=== PATIENT | male | born 2000 | race Caucasian/White ===

== ENCOUNTER 2022-09-18 22:13 | Inpatient (IN) | payer OTHER ==
[~2022-09-18] VITALS: Ht 177.8 cm; Wt 81.8 kg
[2022-09-19 00:28] LABS: HEMATOCRIT 44.5 % (42.0-52.0); HEMOGLOBIN 15.1 g/dl (13.5-17.5); MEAN CORPUSCULAR HEMOGLOBIN 30.6 pg (27.0-33.0); MEAN CORPUSCULAR HGB CONC 33.9 g/dl (32.0-36.5); MEAN CORPUSCULAR VOLUME 90.3 fl (80.0-96.0); PLATELET COUNT, AUTOMATED 279 10^3/uL (150-450); RED BLOOD COUNT 4.93 10^6/uL (4.30-6.10); WHITE BLOOD COUNT 13.3 10^3/uL (4.0-10.0)
[2022-09-19 00:53] LABS: ACETAMINOPHEN LEVEL < 2.0 UG/ML (10.0-20.0); ALBUMIN 4.5 G/DL (3.2-5.2); ALT/SGPT 27 U/L (7.0-40); BILIRUBIN,DIRECT < 0.1 MG/DL (<0.4); BILIRUBIN,TOTAL 0.2 MG/DL (0.3-1.2); BLOOD UREA NITROGEN 13 MG/DL (9-23); CALCIUM LEVEL 9.6 MG/DL (8.5-10.1); CARBON DIOXIDE LEVEL 24 MMOL/L (20-31); CHLORIDE LEVEL 108 MMOL/L (98-107); CREATININE FOR GFR 0.65 MG/DL (0.70-1.30); ETHYL ALCOHOL (ETHANOL) 0.073 % (0.000-0.010); GLOMERULAR FILTRATION RATE > 60.0 (>60); GLUCOSE, FASTING 90 MG/DL (60-100); POTASSIUM SERUM 4.1 MMOL/L (3.5-5.1); SODIUM LEVEL 144 MMOL/L (136-145); THYROID STIMULATING HORMONE 1.192 uIU/ML (0.55-4.78); TOTAL PROTEIN 7.6 G/DL (5.7-8.2)
[2022-09-19 00:54] LABS: SALICYLATE LEVEL < 3.0 MG/DL (<30)
[2022-09-19 00:56] LABS: RSV AMPLIFICATION NEGATIVE (NEGATIVE)
[2022-09-19] MEDS ORDERED: ACETAMINOPHEN TAB 650MG DOSE (2X325MG) PO PRN (03:10)
[2022-09-19 03:50] LABS: AMPHETAMINES LEVEL URINE NEGATIVE (NEGATIVE); BARBITURATES URINE NEGATIVE (NEGATIVE); BENZODIAZEPINES URINE NEGATIVE (NEGATIVE); CANNABINOIDS URINE POSITIVE (NEGATIVE); COCAINE METABOLITE URINE NEGATIVE (NEGATIVE); METHADONE URINE NEGATIVE (NEGATIVE); OPIATES URINE NEGATIVE (NEGATIVE); PHENCYCLIDINE URINE NEGATIVE (NEGATIVE)
[2022-09-19] MEDS ORDERED: NICOTINE 21MG/24HR 1 EA TRANSDERMAL TD ONE (17:00)
[2022-09-20] MEDS ORDERED: HOME MED LIST COMPLETE! XX SCH (15:10)
[2022-09-20] MEDS ORDERED: NICOTINE 14 MG/24 HR TRANSDERMAL TD ONE (22:05)
[2022-09-20] MEDS ORDERED: NICOTINE 21MG/24HR 1 EA TRANSDERMAL TD ONE (22:15)
[2022-09-21] MEDS ORDERED: MAALOX 30 ML SUSP *UDC PO PRN (12:55)
[2022-09-21] MEDS ORDERED: MOM 30ML SUSPENSION UDC PO PRN (12:55)
[2022-09-21] MEDS ORDERED: IBUPROFEN 400MG TAB PO PRN (12:55)
[2022-09-21] MEDS: NICOTINE 21MG/24HR 1 EA TRANSDERMAL TD SCH (13:17)
[2022-09-21 14:58] VITALS: BP 147/90
[2022-09-21] MEDS: traZODone 50 MG TAB PO PRN (21:38)
[2022-09-21] MEDS: LORazepam 1 MG TAB PO PRN (21:39)
[2022-09-22 06:13] VITALS: BP 156/66
[2022-09-22] MEDS: NICOTINE 21MG/24HR 1 EA TRANSDERMAL TD SCH (08:12)
[2022-09-22] MEDS: LORazepam 1 MG TAB PO PRN ×2 (12:45→20:24)
[2022-09-22 18:12] VITALS: BP 132/63
[2022-09-22] MEDS: traZODone 50 MG TAB PO PRN (20:22)
[2022-09-23 06:28] VITALS: BP 134/70
[2022-09-23] MEDS: NICOTINE 21MG/24HR 1 EA TRANSDERMAL TD SCH (08:37)
[2022-09-23] MEDS: LORazepam 1 MG TAB PO PRN ×2 (08:38→20:22)
[2022-09-23 18:00] VITALS: BP 128/75
[2022-09-23] MEDS: traZODone 50 MG TAB PO PRN (20:22)
[2022-09-24 06:54] VITALS: BP 119/63
[2022-09-24] MEDS: NICOTINE 21MG/24HR 1 EA TRANSDERMAL TD SCH (08:11)
[2022-09-24] MEDS ORDERED: TRAZ-252 PO (08:52)
== END 2022-09-24 10:41 | disposition home or self-care (01) | DRG 756 ==
LOC: M ED 22:13 → M ED INP 09-21 12:53 → M PSY 09-21 15:02
PROVIDERS: ADMIT Student in an Organized Health Care Education/Training Program; ATTEND Psychiatry & Neurology Psychiatry
DX: F43.0 Acute stress reaction (principal); R45.851 Suicidal ideations; F10.220 Alcohol dependence with intoxication, uncomplicated; F17.210 Nicotine dependence, cigarettes, uncomplicated; Z20.822 Contact with and (suspected) exposure to COVID-19; Z63.0 Problems in relationship with spouse or partner; Z79.899 Other long term (current) drug therapy; S31.119A Laceration without foreign body of abdominal wall, unspecified quadrant without penetration into peritoneal cavity, initial encounter; S41.111A Laceration without foreign body of right upper arm, initial encounter; S41.112A Laceration without foreign body of left upper arm, initial encounter; X78.1XXA Intentional self-harm by knife, initial encounter; Y92.009 Unspecified place in unspecified non-institutional (private) residence as the place of occurrence of the external cause

== ENCOUNTER 2023-03-29 14:38 | Emergency (ER) | payer OTHER ==
[~2023-03-29] VITALS: Ht 177.8 cm; Wt 72.7 kg
[~2023-03-29 14:38] MED LIST: TRAZ-252 PO
[2023-03-29 15:25] LABS: HEMATOCRIT 45.9 % (42.0-52.0); HEMOGLOBIN 15.8 g/dl (13.5-17.5); MEAN CORPUSCULAR HGB CONC 34.4 g/dl (32.0-36.5); MEAN CORPUSCULAR VOLUME 87.3 fl (80.0-96.0); PLATELET COUNT, AUTOMATED 312 10^3/uL (150-450); RED BLOOD COUNT 5.26 10^6/uL (4.30-6.10); WHITE BLOOD COUNT 11.2 10^3/uL (4.0-10.0)
[2023-03-29 15:53] LABS: AMPHETAMINES LEVEL URINE NEGATIVE (NEGATIVE); BARBITURATES URINE NEGATIVE (NEGATIVE); BENZODIAZEPINES URINE NEGATIVE (NEGATIVE); COCAINE METABOLITE URINE NEGATIVE (NEGATIVE); METHADONE URINE NEGATIVE (NEGATIVE); OPIATES URINE NEGATIVE (NEGATIVE)
[2023-03-29 15:54] LABS: PHENCYCLIDINE URINE NEGATIVE (NEGATIVE)
[2023-03-29 15:56] LABS: CANNABINOIDS URINE POSITIVE (NEGATIVE)
[2023-03-29 15:57] LABS: ETHYL ALCOHOL (ETHANOL) 0.175 % (0.000-0.010)
[2023-03-29 15:58] LABS: SALICYLATE LEVEL < 3.0 MG/DL (<30)
[2023-03-29 15:59] LABS: ACETAMINOPHEN LEVEL < 2.0 UG/ML (10.0-20.0); ALBUMIN 4.9 G/DL (3.2-5.2); ALKALINE PHOSPHATASE 77 U/L (46-116); ALT/SGPT 30 U/L (7.0-40); AST/SGOT 32 U/L (<34); BILIRUBIN,DIRECT 0.2 MG/DL (<0.4); BILIRUBIN,TOTAL 0.5 MG/DL (0.3-1.2); BLOOD UREA NITROGEN 8 MG/DL (9-23); CALCIUM LEVEL 9.7 MG/DL (8.5-10.1); CARBON DIOXIDE LEVEL 22 MMOL/L (20-31); CHLORIDE LEVEL 104 MMOL/L (98-107); CREATININE FOR GFR 0.73 MG/DL (0.70-1.30); GLOMERULAR FILTRATION RATE > 60.0 (>60); GLUCOSE, FASTING 82 MG/DL (60-100); POTASSIUM SERUM 4.3 MMOL/L (3.5-5.1); SODIUM LEVEL 141 MMOL/L (136-145); TOTAL PROTEIN 8.5 G/DL (5.7-8.2)
[2023-03-29 16:00] LABS: THYROID STIMULATING HORMONE 0.846 uIU/ML (0.55-4.78)
[2023-03-29] MEDS ORDERED: NICOTINE POLACRILEX 2 MG GUM PO ONE (17:45)
[2023-03-29 22:30] VITALS: BP 125/70
== END 2023-03-29 23:03 | disposition home or self-care (01) ==
LOC: M ED 14:38
DX: F10.129 Alcohol abuse with intoxication, unspecified (principal); F43.0 Acute stress reaction; F12.10 Cannabis abuse, uncomplicated; R45.851 Suicidal ideations; K21.9 Gastro-esophageal reflux disease without esophagitis; F17.200 Nicotine dependence, unspecified, uncomplicated; Z79.899 Other long term (current) drug therapy